=== PATIENT | female | born 1990 | race Caucasian/White ===

== ENCOUNTER 2024-07-15 15:40 | Emergency (ER) | payer OTHER, SELFPAY ==
[2024-07-15] VITALS (11 sets, daily range): BP systolic 105–139; BP diastolic 56–75; PULSE 71–92; RESP 17–21; TEMP 37; O2SAT 94–100
--- NOTE | ~2024-07-15 | CT_ITS ---
EXAMINATION: CTA chest PE protocol DATE: 07/15/2024 18:03 INDICATION: Chest pain/ sob/ elevated d-dimer x1 day TECHNIQUE: Computed tomography angiography (CTA) of the chest was performed with 100 mL Omnipaque-350 intravenous contrast timed to evaluate the pulmonary arteries. Coronal maximum intensity projection 3D-reconstructions were created by the technologist. The dose-length product (DLP) was 444.23 mGy-cm. Automated exposure control and iterative reconstruction technique were employed. COMPARISON: None. FINDINGS: Lung parenchyma and airways: Clear. Pleura: Unremarkable. Thoracic inlet, axillae and chest wall: Unremarkable. Thoracic aorta: No significant dilation. No dissection. Mediastinum: Normal. Heart and pericardium: Normal. Coronary artery calcifications: Absent. Upper abdomen: No significant finding. Bones: No acute osseous finding. Pulmonary arteries: Study quality: Somewhat limited evaluation of the subsegmental pulmonary arteries due to quantum mottle and beam hardening artifact. No pulmonary emboli detected. IMPRESSION: No CT evidence of acute central or segmental pulmonary embolus. Limited evaluation of the subsegmenta l pulmonary arteries. No acute process detected in the chest. Reviewed, dictated and finalized at location [facility] IMPRESSION: No CT evidence of acute central or segmental pulmonary embolus. Limited evaluat ion of the subsegmental pulmonary arteries. No acute process detected in the chest.
--- NOTE | 2024-07-15 15:47 | ECG_ITS ---
Test Date: 2024-07-15 15:54:05 Measurements Intervals [place] Rate: 73 P: 42 CT: 118 QRS: 46 QRSD: 94 T: 3 QT: 402 QTc: 443 Interpretive Statements SINUS RHYTHM WITH SHORT CT INTERVAL NONSPECIFIC T-WAVE ABNORMALITY ABNORMAL ECG Electronically Signed On 07-16-2024 08:50:47 IT INVESTMENT/[employer] MANAGER by Yobani Terry M.D.
--- NOTE | 2024-07-15 15:50 | ED_ITS ---
HPI - Chest Pain General Chief Complaint: Chest Pain Stated Complaint: CHEST PAIN Source: patient Mode of arrival: ambulatory Limitations: no limitations History of Present Illness HPI narrative: Patient is a 33-year-old female with mid epigastric pain that radiates upper midline chest over the past month. Specifically however the pain started of a bandlike formation of the upper abdomen that started today. She ate a very large meal today as well as having a large meal yesterday and the day before with holiday of . The heavy meal has made it worse. EMS brought the patient. He was given aspirin and nitro. At this time the pain has resolved. Associated shortness of breath. MD complaint: chest pain and chest discomfort Pertinent past history: other ( None) Onset (ago): day(s) (1; she has been having some difficulties over the past month; associated diarrhea times) Timing of current episode: episodic Prior episodes: Yes Onset: during rest and after eating Pain location: substernal, epigastric and other ( band like design under the ribcage upper abdomen) Pain radiation: abdomen ( bandlike design of upper abdomen) Severity: moderate Pain scale (0-10): 5 Quality: tightness and sharp Relieving factors: nothing Exacerbating factors: eating Context: other ( recent large meal intake over the last few days with has made this worse) Associated symptoms: nausea and other ( diarrhea) Treatment prior to arrival: aspirin, nitroglycerin and other ( Zofran) Risk Factors Coronary artery disease risk factors: none Thoracic aortic dissection risk factors: none Related Data On Oral Contraceptives: No Allergies Allergy/AdvReac Type Severity Reaction Status Date / Time Penicillins Allergy Mild Rash Verified 07/15/24 18:40 Review of Systems Review of Systems: All systems reviewed & are unremarkable except as noted in HPI and below Constitutional: Constitutional: Reports no additional constitutional c omplaints Eyes: Eyes: Reports no additional eye complaints ENT: Reports system reviewed and no additional complaints, except as documented Cardiovascular: Cardiovascular: Reports no additional cardiovascular complaints Respiratory: Respiratory: Reports no additional respiratory complaints Gastrointestinal: Gastrointestinal: Reports no additional gastrointestinal complaints Genitourinary: Genitourinary: Reports no additional female genitourinary complaints Musculoskeletal: Musculoskeletal: Reports no additional musculoskeletal complaints Integumentary/Breasts: Skin/Breast: Reports system reviewed and no additional complaints, except as docu Neurologic: Reports system reviewed and no additional complaints, except as documented Psychiatric: Psychiatric: Reports no additional psychiatric complaints Endocrine: Endocrine: Reports no additional endocrine complaints Hematologic/Lymphatic: Hematologic/Lymphatic: Reports no additional hematologic/lymphatic complaints Allergic/Immunologic: Allergic/Immunologic: Reports no additional allergic /immunologic complaints Exam Const: General: healthy appearing Nutritional Appearance: well nourished Orientation/consciousness: patient oriented x3 HENMT: Head: normal to inspection Ears: external ears normal Face/Nose/Sinus: Normal external nose present Eyes: Conjunctivae: conjunctivae normal Pupils: Equal, round and reactive pupils present EOM: EOMs intact bilaterally Neck: Neck: normal visual inspection Chest: Chest palpation & inspection: normal inspection of the chest Resp: Effort & Inspection: normal respiratory effort and not labored Auscultation: clear to auscultation bilaterally and no crackles Cardio: Rate: regular rate Rhythm: regular rhythm Heart sounds: no murmurs GI: Inspection: non-distended Auscultation: normal bowel sounds and bowel sounds present : General: Yes bladder normal to palpation Back/Spine/Pelvis: Back: no CVA tenderness Skin: General skin exam: normal color Rashes: no rashes Wounds: no wounds Neuro: General: patient oriented x3 Cranial nerves: Yes Nystagmus not present Speech: normal speech Extrem: General: normal to inspection Psych: Mental Status: mental status grossly normal Affect: normal affect Attitude: cooperative Course Vital Signs Vital signs: Vital Signs Temperature 37.0 C 07/15/24 15:40 Pulse Rate 83 07/15/24 15:40 Respiratory Rate 20 07/15/24 15:40 Blood Pressure 123/60 07/15/24 15:40 Pulse Oximetry 100 07/15/24 15:40 Oxygen Delivery Room Air 07/15/24 15:40 Temperature 37.0 C 07/15/24 15:40 Pulse Rate 71 07/15/24 17:32 Respiratory Rate 20 07/15/24 17:31 Blood Pressure 116/57 L 07/15/24 17:31 Pulse Oximetry 94 07/15/24 17:31 Oxygen Delivery Room Air 07/15/24 17:31 MDM - Chest Pain MDM Narrative Medical decision making narrative: patient is a 33-year-old female with epigastric and chest pain with a bandlike associated pain across the upper abdomen. Will do a workup at this time. Cardiac and abdominal pain workup. Lab Data Attestation: I reviewed the patient's lab results. 07/15/24 16:18 07/15/24 16:19 Labs: Lab Results 07/15/24 07/15/24 Range/Units 16:18 16:19 WBC 13.7 H (4.8-10.8) K/mm3 RBC 4.26 (4.20-5.40) M/mm3 Hgb 13.0 (12.0-15.0) g/dL Hct 38.0 (35.0-49.0) % MCV 89.2 (78.0-102.0) fL MCH 30.5 (27.0-31.0) pg MCHC 34.2 (32-36) g/dL RDW 13.7 (11.6-14.4) % Plt Count 336 (150-420) K/mm3 MPV 9.7 (9.2-11.8) fl Immature Gran % (Auto) 0.4 H (0.0-0.0) % Neut % (Auto) 78.0 H (50.0-70.0) % Lymph % (Auto) 14.9 L (18.0-42.0) % Antelope % (Auto) 4.2 (2.0-11.0) % Eos % (Auto) 1.9 (1.0-6.0) % Baso % (Auto) 0.6 (0.0-1.0) % Lymph # (Auto) 2.03 (1.10-4.50) K/mm3 Antelope # (Auto) 0.58 (0.10-0.90) K/mm3 Eos # (Auto) 0.26 (0.02-0.50) K/mm3 Baso # (Auto) 0.08 (0.00-0.10) K/mm3 Abs Immat Gran (auto) 0.06 H (0.00-0.00) K/mm3 Absolute Neuts (auto) 10.64 H (1.70-7.20) K/mm3 Absolute Nucleated RBC 0.00 (0.00-0.00) K/mm3 Nucleated RBC % 0.0 (0-0.0) % D-Dimer 0.52 H* (0.19-0.50) mg/L Sodium 139 (136-145) mmol/L Potassium 3.6 (3.5-5.1) mmol/L Chloride 103 (98-108) mmol/L Carbon Dioxide 24 (21-32) mmol/L Anion Gap 12 (4-12) mmol/L BUN 9 (7-18) mg/dL Creatinine 0.85 (0.55-1.02) mg/dL Estim Creat Clear Calc 100 ml/min Estimated GFR > 60 (59 - ) Glucose 145 H (70-99) mg/dL Calculated Osmolality 289 (285-295) mOsm/kg Calcium 8.8 (8.5-10.1) mg/dL Total Bilirubin 0.4 (0.00-1.00) mg/dL AST 20 (15-37) U/L ALT 22 (14-59) U/L Alkaline Phosphatase 66 (46-116) U/L Troponin I < 4.0 (0.00-60.4) ng/L NT-Pro-B Natriuret Pep 45 (0-125) pg/mL Total Protein 7.4 (6.4-8.2) g/dL Albumin 3.1 L (3.4-5.0) g/dL Lipase 58 (16-77) U/L Serum HCG, Qual Negative Urine Color Pending Urine Appearance Pending Urine pH Pending Ur Specific [place] Pending Urine Protein Pending Urine Glucose (UA) Pending Urine Ketones Pending Ur Blood (Man) Pending Urine Nitrate Pending Urine Bilirubin Pending Urine Urobilinogen Pending Leukocyte Esterase Rfl Pending Urine Opiates Screen Pending Urine Methadone Screen Pending Ur Barbiturates Screen Pending Ur Phencyclidine Scrn Pending Ur Amphetamine Screen Pending U Benzodiazepines Scrn Pending Urine Cocaine Screen Pending U Cannabinoids Screen Pending Imaging Data Attestation: I personally reviewed and interpreted this imaging study as follows: Radiologist's impression: CTA of the chest was negative for PE and other acute process; it also evaluated upper abdomen which was negative for acute process ECG Data EKG #1: Attestation: I personally reviewed and interpreted this ECG as follows: ECG completion date: 07/15/24 ECG completion time: 16:16 EKG Interpretation: normal rate, sinus rhythm, no ectopy, non-specific ST changes, normal QRS, normal QT and NL axis Discharge Plan Discharge Clinical Impression: Chest pain due to GERD Patient Disposition: Home, Self-Care Condition: Stable Instructions: GERD (Gastroesophageal Reflux Disease) (DC) Prescriptions: New pantoprazole [Protonix] 40 mg tablet,delayed release (DR/EC) 40 mg PO DAILY 30 Days Qty: 30 0RF Follow-up/Referrals: UNKNOWN,DOCTOR [Primary Care Provider] - Time of Disposition: 18:39
[2024-07-15 16:29] LABS: Basophils Absolute Auto 0.08 K/mm3 (0.00-0.10); Basophils Percent Auto 0.6 % (0.0-1.0); Eosinophils Absolute Auto 0.26 K/mm3 (0.02-0.50); Eosinophils Percent Auto 1.9 % (1.0-6.0); Immature Granulocyte Absolute 0.06 K/mm3 (0.00-0.00); Immature Granulocyte Percent A 0.4 % (0.0-0.0); Lymphocytes Absolute Auto 2.03 K/mm3 (1.10-4.50); Lymphocytes Percent Auto 14.9 % (18.0-42.0); Mean Corpuscular HGB Conc 34.2 g/dL (32-36); Mean Corpuscular Hemoglobin 30.5 pg (27.0-31.0); Mean Corpuscular Volume 89.2 fL (78.0-102.0); Mean Platelet Volume 9.7 fl (9.2-11.8); Monocytes Absolute Auto 0.58 K/mm3 (0.10-0.90); Monocytes Percent Auto 4.2 % (2.0-11.0); Neutrophils Absolute Auto 10.64 K/mm3 (1.70-7.20); Platelet Count Result 336 K/mm3 (150-420); Red Blood Count 4.26 M/mm3 (4.20-5.40); Red Cell Distribution Width 13.7 % (11.6-14.4); White Blood Count 13.7 K/mm3 (4.8-10.8)
[2024-07-15 16:51] LABS: Alanine Aminotransferase 22 U/L (14-59); Albumin Level 3.1 g/dL (3.4-5.0); Alkaline Phosphatase 66 U/L (46-116); Anion Gap 12 mmol/L (4-12); Aspartate Amino Transferase 20 U/L (15-37); Bilirubin,Total 0.4 mg/dL (0.00-1.00); Blood Urea Nitrogen 9 mg/dL (7-18); Calcium 8.8 mg/dL (8.5-10.1); Carbon Dioxide 24 mmol/L (21-32); Chloride 103 mmol/L (98-108); Estimated CRCL calculation 100 ml/min; Estimated Glomerular Filt Rate > 60; Glucose 145 mg/dL (70-99); Lipase 58 U/L (16-77); NT Pro B Type Natriuretic Pept 45 pg/mL (0-125); Osmolality Calculated 289 mOsm/kg (285-295); Potassium 3.6 mmol/L (3.5-5.1); Sodium 139 mmol/L (136-145); Total Protein 7.4 g/dL (6.4-8.2); Troponin I < 4.0 ng/L (0.00-60.4)
[2024-07-15 16:52] LABS: D Dimer 0.52 mg/L (0.19-0.50)
[2024-07-15 17:41] LABS: SPREG INTERNAL CONTROL Positive; Serum Qual hCG Negative
[2024-07-15 17:48] LABS: Add Urine Microscopic? NO; Appearance Urine Clear (Clear); Bilirubin Urine Negative (Negative); Blood Urine Negative (Negative); Color Urine Light Yellow (Yellow); Glucose Urine UA Negative (Negative); Ketones Urine Negative (Negative); Leukocyte Esterase Ur Negative LEU/UL (Negative); Nitrate Urine Negative (Negative); Protein Urine Negative (Negative); Specific Grav Ur 1.015 (1.010-1.020); Urobilinogen Urine 0.2 mg/dL (0.2-1.0)
--- NOTE | 2024-07-15 17:51 | PC.NURSE ---
PT TO XRAY VIA WHEELCHAIR FOR CT CHEST
[2024-07-15 17:53] LABS: Amphetamine Screen Urine Negative (Negative); Barbiturate Screen Urine Negative (Negative); Benzodiazepines Screen Urine Negative (Negative); Cannabinoid Screen Urine Negative (Negative); Cocaine Screen Urine Negative (Negative); Methadone Screen Urine Negative (Negative); Opiate Screen Urine Negative (Negative); Phencyclidine Screen Urine Negative (Negative)
--- NOTE | 2024-07-15 18:03 | PC.NURSE ---
PT RETURN TO ROOM, AWAITING CT RESULTS.
[2024-07-15] MEDS: PANTOPRAZOLE 40 MG TABLET PO (18:47)
== END 2024-07-15 19:00 | disposition home or self-care (01) ==
PROVIDERS: Emergency Provider Emergency Medicine
DX: K21.9 Gastro-esophageal reflux disease without esophagitis (principal); Z79.899 Other long term (current) drug therapy; Z79.82 Long term (current) use of aspirin
CPT/HCPCS: 36415; 71275; 80053; 80307; 81003; 83690; 83880; 84484; 84703; 85025; 85380; 93005; 99284; A9270; Q9967